=== PATIENT | male | born 1955 | race Caucasian/White ===

== ENCOUNTER 2019-08-26 17:25 | Emergency (ER) | payer OTHER ==
[~2019-08-26] VITALS: Ht 167.6 cm; Wt 59.4 kg
== END 2019-08-26 18:33 | disposition home or self-care (01) ==
LOC: ED 17:25
DX: F11.10 Opioid abuse, uncomplicated (principal); G62.9 Polyneuropathy, unspecified; R11.0 Nausea; R53.1 Weakness; R25.1 Tremor, unspecified